=== PATIENT | male | born 1965 | race African-American/Black ===

== ENCOUNTER 2017-12-28 14:12 | Emergency (ER) | payer SELFPAY ==
[2017-12-28] MEDS ORDERED: Albuterol/Ipratropium 3.0-0.5 MG/3 ML Neb Soln NEB ONE (14:25)
[2017-12-28] MEDS ORDERED: Sodium Chloride 0.9% 10 ML Syringe FLUSH PRN (14:25)
[2017-12-28] MEDS ORDERED: methylPREDNISolone Sodium Succinate 125 MG/2 ML SDV IVPUSH ONE (14:25)
--- NOTE | 2017-12-28 14:30 | EDM.PDOC ---
ED HPI GENERAL MEDICAL PROBLEM - General Chief Complaint: Respiratory Problem Stated Complaint: ASTHMA ATTACK Time Seen by Provider: 12/28/17 14:16 Source of Information: Reports: Patient History Limitations: Reports: No Limitations - History of Present Illness INITIAL COMMENTS - FREE TEXT/NARRATIVE: 52-year-old male presents for evaluation and treatment of asthma exacerbation. Patient reports that he has asthma and normally uses a nebulized albuterol and pro-air. He has been out of his medications for the last 3 days. 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 He is currently complaining of wheezing and productive cough. No fevers, chills, nausea, vomiting or any chest pain. - Related Data Allergies Allergy/AdvReac Type Severity Reaction Status Date / Time No Known Allergies Allergy Verified 12/28/17 14:33 Home Meds: Home Meds Albuterol [Proventil Neb Soln] 2.5 mg .XX Q4HR PRN #30 neb 12/28/17 [Rx] Albuterol [Ventolin HFA] 2 puff INH Q4H PRN 12/28/17 [History] Albuterol [Ventolin HFA] 2 puff INH Q4H PRN #2 puff 12/28/17 [Rx] predniSONE [Prednisone] 40 mg PO DAILY #10 tablet 12/28/17 [Rx] ED ROS GENERAL - Review of Systems Review Of Systems: See Below Constitutional: Denies: Fever, Chills Respiratory: Reports: Shortness of Breath, Wheezing, Cough Cardiovascular: Denies: Chest Pain GI/Abdominal: Denies: Nausea, Vomiting ED EXAM, GENERAL - Physical Exam Exam: See Below Exam Limited By: No Limitations General Appearance: Alert, WD/WN, Mild Distress Nose: Normal Inspection. No: Nasal Flaring Throat/Mouth: Normal Inspection, Normal Lips, Normal Voice, No Airway Compromise Neck: Normal Inspection Respiratory/Chest: Respiratory Distress (tachypnea), Decreased Breath Sounds, Wheezing (diffuse bilateral expiratory). No: Rhonchi Cardiovascular: Normal Peripheral Pulses, Regular Rate, Rhythm, No Murmur Neurological: Alert, Oriented, Normal Cognition Psychiatric: Normal Affect, Normal Mood Skin Exam: Warm, Dry, Normal Color Course - Vital Signs Last Recorded V/S: Last Vital Signs Temp 98.5 F 12/28/17 14:15 Pulse 86 12/28/17 17:40 Resp 17 12/28/17 17:40 BP 143/93 H 12/28/17 17:40 Pulse Ox 96 12/28/17 17:40 - Orders/Labs/Meds Labs: Laboratory Tests 12/28/17 12/28/17 Range/Units 15:10 15:10 WBC 7.53 (4.23-9.07) K/mm3 RBC 5.17 (4.63-6.08) M/mm3 Hgb 13.9 (13.7-17.5) gm/L Hct 42.5 (40.1-51.0) % MCV 82.2 (79.0-92.2) fl MCH 26.9 (25.7-32.2) pg MCHC 32.7 (32.2-35.5) g/dl RDW Std Deviation 40.3 (35.1-43.9) fL Plt Count 275 (163-337) K/mm3 MPV 10.0 (9.4-12.3) fl Neut % (Auto) 61.7 (34.0-67.9) % Lymph % (Auto) 25.4 (21.8-53.1) % Harmon % (Auto) 7.4 (5.3-12.2) % Eos % (Auto) 4.9 (0.8-7.0) Baso % (Auto) 0.3 (0.1-1.2) % Neut # (Auto) 4.65 (1.78-5.38) K/mm3 Lymph # (Auto) 1.91 (1.32-3.57) K/mm3 Harmon # (Auto) 0.56 (0.30-0.82) K/mm3 Eos # (Auto) 0.37 (0.04-0.54) K/mm3 Baso # (Auto) 0.02 (0.01-0.08) K/mm3 Sodium 140 (136-145) mEq/L Potassium 3.4 L (3.5-5.1) mEq/L Chloride 103 (98-107) mEq/L Carbon Dioxide 30 (21-32) mEq/L Anion Gap 10.4 (5-15) BUN 11 (7-18) mg/dL Creatinine 1.1 (0.7-1.3) mg/dL Est Cr Clr Drug Dosing 73.44 mL/min Estimated GFR (MDRD) > 60 (>60) mL/min BUN/Creatinine Ratio 10.0 L (14-18) Glucose 144 H (74-106) mg/dL Calcium 8.8 (8.5-10.1) mg/dL Total Bilirubin 0.1 L (0.2-1.0) mg/dL AST 18 (15-37) U/L ALT 24 (16-63) U/L Alkaline Phosphatase 78 (46-116) U/L C-Reactive Protein 0.2 (<1.0) mg/dL Total Protein 8.1 (6.4-8.2) g/dl Albumin 3.5 (3.4-5.0) g/dl Globulin 4.6 gm/dL Albumin/Globulin Ratio 0.8 L (1-2) Meds: Medications Discontinued Medications Generic Name Dose Route Start Last Admin Trade Name Freq PRN Reason Stop Dose Admin Albuterol 2.5 mg 12/28/17 15:08 12/28/17 15:17 Proventil Neb Soln NEB 12/28/17 15:09 2.5 mg ONETIME ONE Administration Albuterol/Ipratropium 3 ml 12/28/17 14:25 12/28/17 14:39 Duoneb 3.0-0.5 Mg/3 Ml NEB 12/28/17 14:26 3 ml ONETIME ONE Administration Albuterol/Ipratropium Confirm 12/28/17 14:37 12/28/17 15:17 Duoneb 3.0-0.5 Mg/3 Ml Administered 12/28/17 14:38 Not Given Dose 3 ml .ROUTE .STK-MED ONE Methylprednisolone Sodium Succinate 125 mg 12/28/17 14:25 12/28/17 15:12 Solu-Medrol IVPUSH 12/28/17 14:26 125 mg ONETIME ONE Administration Sodium Chloride 10 ml 12/28/17 14:25 12/28/17 15:13 Saline Flush FLUSH 10 ml ASDIRECTED PRN Administration Keep Vein Open - Radiology Interpretation Free Text/Narrative:: Chest: Two views of the chest were obtained. Comparison: No prior chest x-ray. Heart size is normal. Tortuous thoracic aorta is seen. Lungs are clear. Bony structures are unremarkable. Impression: 1. Nothing acute is seen on two-view chest x-ray. - Re-Assessments/Exams Free Text/Narrative Re-Assessment/Exam: 12/28/17 17:06 Checked on the patient. He is still little wheezy be sounds greatly improved and he feels a lot better. At this point we'll discharge him home. I will prescribe him a short course of steroids, albuterol inhaler or nebulizers as needed. Discharge instructions as documented. Departure - Departure Time of Disposition: 17:06 Disposition: Home, Self-Care 01 Condition: Fair Clinical Impression: Asthma exacerbation - Discharge Information *PRESCRIPTION DRUG MONITORING PROGRAM REVIEWED*: No *COPY OF PRESCRIPTION DRUG MONITORING REPORT IN PATIENT MALLY: No Prescriptions: Albuterol [Proventil Neb Soln] 2.5 mg .XX Q4HR PRN #30 neb PRN Reason: Shortness Of Breath Albuterol [Ventolin HFA] 2 puff INH Q4H PRN #2 puff PRN Reason: Shortness Of Breath predniSONE [Prednisone] 40 mg PO DAILY #10 tablet Instructions: Asthma, Adult, [id number] Referrals: PCP,None [Primary Care Provider] - Forms: ED Department Discharge Additional Instructions: Prednisone 2 tabs 40 mg by mouth daily for 5 days. You were given steroid in the ED today. Start your prescription tomorrow. 1 nebulizer every 4-6 hours as needed for shortness of breath or inhaler 1 or 2 puffs every 4-6 hours as needed for shortness of breath. Please return to the ED if your symptoms change or worsen. Recommend follow-up with your family practice provider as soon as you able to.
[2017-12-28] MEDS ORDERED: Albuterol/Ipratropium 3.0-0.5 MG/3 ML Neb Soln ONE (14:37)
[2017-12-28] MEDS ORDERED: Albuterol 0.083% 2.5 MG/3 ML Neb Soln NEB ONE (15:08)
--- NOTE | 2017-12-28 17:55 | CR ---
Chest: Two views of the chest were obtained. Comparison: No prior chest x-ray. Heart size is normal. Tortuous thoracic aorta is seen. Lungs are clear. Bony structures are unremarkable. Impression: 1. Nothing acute is seen on two-view chest x-ray. Diagnostic code #1
== END 2017-12-28 17:43 | disposition home or self-care (01) ==
LOC: JD.ED 14:12
DX: J45.901 Unspecified asthma with (acute) exacerbation (principal); Z79.899 Other long term (current) drug therapy
CPT/HCPCS: 36415; 71046; 80053; 85025; 86140; 94640; 96374; 99285; J2930; J7050; 99284; J7620-GY